=== PATIENT | female | born 1960 | race Caucasian/White ===

== ENCOUNTER 2018-03-05 12:28 | Day surgery (SDC) | payer OTHER ==
[~2018-03-05] VITALS: Ht 165.1 cm; Wt 79.8 kg
[~2018-03-05 12:28] MED LIST: Aldactone25 MG PO; CALCA500CH PO; CARV25 PO; FURO20 PO; GABA100 PO; LOSA25 PO; METF500 PO; METF500C PO; PANT40 PO; POTCHL10ER PO; PRAV20 PO
[2018-03-05] MEDS ORDERED: BUPR100 PO (12:54)
[2018-03-05] MEDS ORDERED: CYCL10 PO (12:55)
[2018-03-05] MEDS ORDERED: NORT25 PO (12:55)
== END 2018-03-05 16:43 | disposition home or self-care (01) ==
LOC: ORSCSDS 12:28
DX: M75.122 Complete rotator cuff tear or rupture of left shoulder, not specified as traumatic (principal); M75.52 Bursitis of left shoulder; M75.22 Bicipital tendinitis, left shoulder; M75.42 Impingement syndrome of left shoulder; I10 Essential (primary) hypertension; E11.9 Type 2 diabetes mellitus without complications; Z87.891 Personal history of nicotine dependence; Z79.899 Other long term (current) drug therapy
CPT/HCPCS: 82947; C1713; J0171; J0690; J1100; J1885; J2250; J2370; J2405; J2710; J2765; J3010; J7120

== ENCOUNTER 2020-03-10 12:08 | Emergency (ER) | payer OTHER ==
[~2020-03-10] VITALS: Ht 167.6 cm; Wt 77.1 kg
[~2020-03-10 12:08] MED LIST changes: +BUPR150ER PO; +CYCL10 PO; -LOSA25 PO; +LOSA50 PO; +NORT25 PO
[2020-03-10 13:23] LABS: BASOPHILS ABSOLUTE AUTO 0.05 K/mm3 (0.00-0.23); BASOPHILS PERCENT AUTO 0 % (0-2); EOSINOPHILS ABSOLUTE AUTO 0.02 K/mm3 (0.00-0.68); EOSINOPHILS PERCENT AUTO 0 % (0-6); Hematocrit 42.5 % (33.0-51.0); Hemoglobin 14.2 g/dL (11.5-16.0); IMMATURE GRAN ABSOLUTE AUTO 0.07 K/mm3 (0.00-0.10); IMMATURE GRAN PERCENT AUTO 1 % (0-1); LYMPHOCYTES ABSOLUTE AUTO 2.33 K/mm3 (0.84-5.20); LYMPHOCYTES PERCENT AUTO 16 % (21-46); MONOCYTES ABSOLUTE AUTO 0.88 K/mm3 (0.16-1.47); MONOCYTES PERCENT AUTO 6 % (4-13); Mean Corpuscular HGB 32.1 pg (26.0-34.0); Mean Corpuscular HGB Conc 33.4 g/dL (31.5-36.5); Mean Corpuscular Volume 96 fL (80-100); Mean Platelet Volume 9.6 fL (9.1-12.4); NEUTROPHILS ABSOLUTE AUTO 10.98 K/mm3 (1.96-9.15); NEUTROPHILS PERCENT AUTO 77 % (41-73); Platelet Count 347 K/mm3 (150-400); RDW Standard Deviation 42.5 fL (35.1-46.3); Red Blood Cell Count 4.43 M/mm3 (3.80-5.20); White Blood Cell Count 14.33 K/mm3 (4.00-11.30)
[2020-03-10 13:45] LABS: Alanine Aminotransfer (ALT/SGP 46 U/L (12-78); Albumin, Blood 4.1 g/dL (3.4-5.0); Albumin/Globulin Ratio 0.9 (0.8-1.8); Alk Phos 111 U/L (50-136); Anion Gap 7 mmol/L (6-16); Aspartate Aminotrans (AST/SGOT 26 U/L (12-37); Bilirubin, Total 0.4 mg/dL (0.1-1.0); Blood Urea Nitrogen 13 mg/dL (8-24); Bun/Creatinine Ratio 20.7 (12.0-20.0); CO2, Blood 25 mmol/L (21-32); Calcium, Blood 9.6 mg/dL (8.5-10.1); Chloride, Blood 110 mmol/L (98-108); Creatinine, Blood 0.63 mg/dL (0.40-1.00); Globulin, Blood 4.6 g/dL (2.2-4.0); Glomerular Filtration Rate >60 (60-); Glucose, Blood 123 mg/dL (70-99); Potassium, Blood 3.9 mmol/L (3.5-5.5); Sodium, Blood 142 mmol/L (136-145); Total Protein, Blood 8.7 g/dL (6.4-8.2)
[2020-03-14] MEDS ORDERED: OXYC5 PO (17:07)
[2020-03-14] MEDS ORDERED: ONDA4ODT SL (17:07)
[2020-03-14] MEDS ORDERED: CIPR500 PO (17:08)
[2020-03-17] MEDS ORDERED: OMEP20ER PO (16:28)
[2020-03-17] MEDS ORDERED: POTCHL20ER PO (16:44)
[2020-03-17] MEDS ORDERED: PROC5 PO (16:45)
== END 2020-03-10 22:08 | disposition short-term general hospital (02) ==
LOC: ER 12:08
PROVIDERS: Emergency Medicine
DX: K80.20 Calculus of gallbladder without cholecystitis without obstruction (principal); Z20.828 Contact with and (suspected) exposure to other viral communicable diseases; Z79.84 Long term (current) use of oral hypoglycemic drugs; Z79.899 Other long term (current) drug therapy; E11.9 Type 2 diabetes mellitus without complications; Z87.891 Personal history of nicotine dependence
CPT/HCPCS: 36415; 74181; 80053; 83690; 85025; 93005; 93010; 96361; 96365; 96375; 96376; 99284-25; J2270; J2405; J2543; J2550; J3010; J7030; U0002

== ENCOUNTER → 2021-05-30 | Outpatient (CLI) | payer OTHER ==
[~2021-05-30] MED LIST changes: +CIPR500 PO; +OMEP20ER PO; +ONDA4ODT SL; +OXYC5 PO; +POTCHL20ER PO; +PROC5 PO
== END ==
LOC: LAB SHORT 14:45
DX: R35.0 Frequency of micturition (principal)
CPT/HCPCS: 87077; 87086; 87186

== ENCOUNTER → 2021-06-15 | Outpatient (CLI) | payer OTHER | LOC: LAB 16:32 → LAB SHORT 16:32 | DX: N39.0 Urinary tract infection, site not specified (principal) | CPT/HCPCS: 87086 ==

== ENCOUNTER → 2021-08-08 | Outpatient (CLI) | payer OTHER | END | disposition home or self-care (01) | LOC: LAB SHORT 15:28 | DX: N39.0 Urinary tract infection, site not specified (principal) | CPT/HCPCS: 87077; 87086; 87186 ==

== ENCOUNTER → 2021-09-05 | Outpatient (CLI) | payer OTHER | END | disposition home or self-care (01) | LOC: LAB 15:12 → LAB SHORT 15:12 | DX: N39.0 Urinary tract infection, site not specified (principal) | CPT/HCPCS: 87077; 87086; 87186 ==

== ENCOUNTER → 2022-09-13 | Outpatient (CLI) | payer OTHER | LOC: LAB 14:20 → LAB SHORT 14:20 | DX: N39.0 Urinary tract infection, site not specified (principal) | CPT/HCPCS: 87077; 87086; 87186 ==

== ENCOUNTER → 2022-10-06 | Outpatient (CLI) | payer OTHER | LOC: LAB SHORT 15:50 | DX: N39.0 Urinary tract infection, site not specified (principal) | CPT/HCPCS: 87077; 87086; 87186 ==

== ENCOUNTER 2022-11-06 09:45 | Day surgery (SDC) | payer OTHER | END 2022-11-09 23:21 | disposition home or self-care (01) | LOC: MOI US 09:45 | DX: C50.211 Malignant neoplasm of upper-inner quadrant of right female breast (principal); Z17.0 Estrogen receptor positive status [ER+] | CPT/HCPCS: 19285; 77065; A4648 ==

== ENCOUNTER 2022-11-17 07:54 | Day surgery (SDC) | payer OTHER ==
[~2022-11-17] VITALS: Ht 165.1 cm; Wt 79.7 kg
[2022-11-17] VITALS (10 sets, daily range): BP systolic 115–166; BP diastolic 77–91
[~2022-11-17 07:54] MED LIST changes: +AMLO5 PO; +IMMODIUM PO
--- NOTE | 2022-11-17 09:23 | NUR ---
Ambulatory in Day Surgery History, Chart, Medications and Allergies reviewed before start of procedure. Lungs clear T/O to Auscultation. Patient confirms NPO status and agrees with scheduled surgery. Pre-Op teaching done. Pt verbalizes understanding.
--- NOTE | 2022-11-17 13:29 | NUR ---
Patient up to Ambulate independently. Gait steady. Discharge instructions reviewed with patient. Patient verbalizes understanding. Copy given to patient to take home. Dressing to procedure site clean, dry, intact with no visible drainage, swelling, erythema or bruising noted. Discharged via wheelchair to private car for ride home.
== END 2022-11-17 22:59 | disposition home or self-care (01) ==
LOC: NM 07:54 → ORSCMMR 07:54 → NM 09:00 → ORSCMMR 22:59
PROVIDERS: Surgery
PROC: 0HBT0ZZ Excision of Right Breast, Open Approach (ICD-10-PCS; principal; 2022-11-17 10:00)
PROC: 07B50ZX Excision of Right Axillary Lymphatic, Open Approach, Diagnostic (ICD-10-PCS; principal; 2022-11-17 10:00)
DX: C50.211 Malignant neoplasm of upper-inner quadrant of right female breast (principal); Z17.0 Estrogen receptor positive status [ER+]; D36.0 Benign neoplasm of lymph nodes; I10 Essential (primary) hypertension; F17.210 Nicotine dependence, cigarettes, uncomplicated; E11.9 Type 2 diabetes mellitus without complications; Z79.84 Long term (current) use of oral hypoglycemic drugs; Z79.899 Other long term (current) drug therapy
CPT/HCPCS: 38792; 76098; 82947; 88307; 88342; A9270; A9520; J0690; J1100; J1885; J2250; J2370; J2405; J2704; J3010; J7120; Q9968

== ENCOUNTER → 2023-03-05 | Outpatient (CLI) | payer OTHER | END | disposition home or self-care (01) | LOC: LAB 16:10 → LAB SHORT 16:10 | DX: R10.2 Pelvic and perineal pain (principal) | CPT/HCPCS: 87086 ==

== ENCOUNTER → 2024-04-04 | Outpatient (CLI) | payer OTHER ==
[~2024-04-04] MED LIST changes: +ANASTROZOLE1 M7 PO; +GLIP10 PO; +SULFAMETHOXAZO1 EAC1 UD
== END | disposition home or self-care (01) ==
LOC: LAB 14:33 → LAB SHORT 14:33
DX: R82.90 Unspecified abnormal findings in urine (principal)
CPT/HCPCS: 87077; 87086; 87186

== ENCOUNTER 2024-04-07 11:30 | Day surgery (SDC) | payer OTHER ==
[~2024-04-07] VITALS: Ht 167.6 cm; Wt 83.7 kg
[~2024-04-07 11:30] MED LIST changes: -ANASTROZOLE1 M7 PO; -GLIP10 PO; +Lactated Ringer's 1,000 ML IV ONE; -SULFAMETHOXAZO1 EAC1 UD
[2024-04-07] MEDS ORDERED: CeFAZolin Sodium 2,000 MG VIAL ONE (11:54)
[2024-04-07] MEDS ORDERED: NS 50 ML IV ONE (11:54)
[2024-04-07] MEDS ORDERED: GLIP10 PO (12:16)
[2024-04-07] MEDS ORDERED: ANASTROZOLE1 M7 PO (12:17)
[2024-04-07] MEDS ORDERED: SULFAMETHOXAZO1 EAC1 UD (12:17)
[2024-04-07] MEDS ORDERED: Lactated Ringer's 1,000 ML IV ONE ×2 (12:25→13:25)
[2024-04-07] MEDS ORDERED: propofoL 20 ML IV ONE (12:44)
[2024-04-07] MEDS ORDERED: FentaNYL Citrate 50 MCG/ML 2 ML Injection ONE (12:45)
[2024-04-07] MEDS ORDERED: Phenylephrine HCl 100 MCG/ML-NS 10MLSYR (1MG/10ML) ONE (12:46)
[2024-04-07] MEDS ORDERED: Bupivacaine 0.5% HCl 5 MG/ML 30MLVIAL ONE (13:06)
[2024-04-07] MEDS ORDERED: Ondansetron HCl 2 MG / ML 2ML Vial ONE (13:11)
[2024-04-07] MEDS ORDERED: Dexamethasone Sod Phos 10 MG/ML 1ML VIAL ONE (13:11)
[2024-04-07] MEDS ORDERED: Ketorolac Tromethamine 30mg Vial ONE (13:11)
[2024-04-07] MEDS ORDERED: Bupivacaine 0.5% W/EPI 1:200000 SDV 10ML INJ ONE (13:17)
[2024-04-07 14:14] VITALS: BP 145/76
== END 2024-04-07 14:51 | disposition home or self-care (01) ==
LOC: ORSCSDS 11:30
PROVIDERS: Orthopaedic Surgery
PROC: 0JBJ0ZX Excision of Right Hand Subcutaneous Tissue and Fascia, Open Approach, Diagnostic (ICD-10-PCS; principal; 2024-04-07 13:15)
PROC: 0LN70ZZ Release Right Hand Tendon, Open Approach (ICD-10-PCS; principal; 2024-04-07 13:15)
PROC: 01N50ZZ Release Median Nerve, Open Approach (ICD-10-PCS; principal; 2024-04-07 13:15)
DX: G56.01 Carpal tunnel syndrome, right upper limb (principal); M65.311 Trigger thumb, right thumb; D48.19 Other specified neoplasm of uncertain behavior of connective and other soft tissue; I10 Essential (primary) hypertension; E11.9 Type 2 diabetes mellitus without complications; Z87.891 Personal history of nicotine dependence; F32.A Depression, unspecified; Z79.4 Long term (current) use of insulin; Z79.899 Other long term (current) drug therapy
CPT/HCPCS: 82947; 88305; 93005; 93010; J0690; J1100; J1885; J2371; J2405; J2704; J3010; J7120

== ENCOUNTER → 2025-04-16 | Outpatient (CLI) | payer MEDICARE, OTHER ==
[~2025-04-16] MED LIST changes: +ANASTROZOLE1 M7 PO; +GLIP10 PO; -Lactated Ringer's 1,000 ML IV ONE; +SULFAMETHOXAZO1 EAC1 UD
== END | disposition home or self-care (01) ==
LOC: LAB SHORT 17:19 → LAB 17:19
DX: R30.0 Dysuria (principal); R35.0 Frequency of micturition
CPT/HCPCS: 87077; 87086; 87186